=== PATIENT | female | born 1990 | race Caucasian/White ===

== ENCOUNTER 2020-11-09 12:18 | Day surgery (SDC) | payer BC ==
[~2020-11-09] VITALS: Ht 170.2 cm; Wt 71.7 kg
[~2020-11-09 12:18] MED LIST: ASCO-96 PO; CHOL10003 PO; PREN1TAB60 PO; URIN1STR71 PO
[2020-11-09] MEDS ORDERED: LIDOCAINE-MPF 1%, 2ML ONE (12:54)
[2020-11-09] MEDS ORDERED: LACTATED RINGERS 1,000 ML IV SCH (13:00)
[2020-11-09] MEDS ORDERED: CHLORHEXIDINE 15 ML UDC MM ONE (13:00)
[2020-11-09 13:28] VITALS: BP 118/85
[2020-11-09] MEDS ORDERED: MEPERIDINE/PF 25MG/0.5ML IVPush PRN ×2 (13:30→15:30)
[2020-11-09] MEDS ORDERED: FENTANYL PF 100 MCG/2ML IV PRN ×2 (13:30→15:30)
[2020-11-09] MEDS ORDERED: HYDROmorphone 1 MG/ML, 1ML INJ IVPush PRN ×2 (13:30→15:30)
[2020-11-09] MEDS ORDERED: ONDANSETRON 2MG/ML, 2ML IVPush PRN ×2 (13:30→15:30)
[2020-11-09] MEDS ORDERED: OXYcodone 5 MG/5 ML ORAL.SOL UDC PO PRN ×2 (13:30→15:30)
[2020-11-09] MEDS ORDERED: PROMETHAZINE 25 MG/ML, 1ML IVPush PRN ×2 (13:30→15:30)
[2020-11-09] MEDS ORDERED: HYDROcodone/APAP 7.5-325MG/15ML UDC PO PRN (13:30)
[2020-11-09 13:35] LABS: HCG UR SG 1.031 (1.003-1.030)
[2020-11-09] MEDS ORDERED: FENTANYL PF 100 MCG/2ML ONE ×2 (14:10→15:37)
[2020-11-09] MEDS ORDERED: MIDAZOLAM 1 MG/ML, 2ML ONE (14:10)
[2020-11-09] MEDS ORDERED: EPINEPHRINE 1 MG/ML, 1ML ONE (14:18)
[2020-11-09] MEDS ORDERED: LIDOCAINE/PF 1%, 30ML ONE (14:18)
[2020-11-09] MEDS ORDERED: PROPOFOL 50 ML ONE (15:04)
[2020-11-09] MEDS ORDERED: ACETAMINOPHEN 325 MG TABLET PO PRN (15:30)
[2020-11-09] MEDS ORDERED: LABETALOL 5MG/ML, 20ML IV PRN (15:30)
[2020-11-09] MEDS ORDERED: LORazepam 2 MG/ML, 1ML IVPush PRN (15:30)
[2020-11-09] MEDS ORDERED: EPHEDRINE 50 MG/ML, 1ML IVPush PRN (15:30)
[2020-11-09] MEDS ORDERED: METHOCARBAMOL 1,000 MG in DEXTROSE 5% 100 ML IV PRN (15:30)
[2020-11-09] MEDS ORDERED: hydrALAzine 20 MG/ML, 1ML IV PRN (15:30)
[2020-11-09] MEDS ORDERED: IBUP-1222 PO (16:15)
[2020-11-09] MEDS ORDERED: OXYC-293 PO (16:15)
[2020-11-09] MEDS ORDERED: DEXAMETHASONE 4 MG/ML, 1ML ONE (16:37)
[2020-11-09] MEDS ORDERED: ONDANSETRON 2MG/ML, 2ML ONE (16:37)
== END 2020-11-09 17:20 | disposition home or self-care (01) ==
LOC: OUT 12:18
PROVIDERS: ATTEND Obstetrics & Gynecology
DX: N90.60 Unspecified hypertrophy of vulva (principal); I10 Essential (primary) hypertension; Z79.899 Other long term (current) drug therapy; Z98.890 Other specified postprocedural states; Z82.49 Family history of ischemic heart disease and other diseases of the circulatory system; Z72.89 Other problems related to lifestyle
CPT/HCPCS: 36415; 56620; 81025; 86850; 86900; J0171; J1100; J2250; J2405; J2704; J3010